=== PATIENT | female | born 1945 | race Caucasian/White ===

== ENCOUNTER 2023-04-16 05:25 | Outpatient (CLI) | payer MEDICARE, SELFPAY ==
[2023-04-16 14:05] LABS: HCT 40.4 % (36.0-46.0); HGB 13.3 g/dL (11.2-15.7); MCH 29.4 pg (27.0-33.0); MCHC 32.9 % (32.0-36.0); MCV 89 fL (80-95); MPV 9.9 fL (8.0-11.0); Platelet Count 305 10^3/uL (130-400); RBC 4.53 10^6/uL (3.93-5.22); RDW 13.9 % (11.7-14.6); RDW-SD 45.7 fL; WBC 6.97 10^3/uL (4.4-10.8)
[2023-04-16 14:38] LABS: ALT 18 U/L (14-59); AST 20 U/L (15-37); Alkaline Phosphatase 118 U/L (46-116); Anion Gap 10.2 mmol/L (3-11); BUN 15 mg/dL (7-18); Bilirubin, Total 0.4 mg/dL (0.2-1.0); CO2 27.8 mmol/L (21.0-32.0); CREATININE 1.1 mg/dL (0.55-1.02); Calcium 10.3 mg/dL (8.5-10.1); Calculated LDL 191 mg/dL (<100); Chloride 102 mmol/L (98-107); Cholesterol 301 mg/dL (<200); Glucose 96 mg/dL (74-106); HDL Cholesterol 79 mg/dL (40-60); Sodium 140 mmol/L (136-145); Triglyceride 155 mg/dL (<150)
[2023-04-16 14:49] LABS: LDH 226 U/L (81-234)
== END 2023-04-16 05:26 | disposition home or self-care (01) ==
LOC: LBO 05:26
PROVIDERS: PCP Nurse Practitioner Family; Visit Provider Nurse Practitioner Family
DX: M81.0 Age-related osteoporosis without current pathological fracture; K21.9 Gastro-esophageal reflux disease without esophagitis; E78.00 Pure hypercholesterolemia, unspecified; Z78.0 Asymptomatic menopausal state
CPT/HCPCS: 36415; 80053; 80061; 85027; 83615

== ENCOUNTER 2024-04-12 02:39 | Outpatient (CLI) | payer MEDICARE, SELFPAY ==
[2024-04-12 12:43] LABS: HCT 39.7 % (36.0-46.0); MCH 29.6 pg (27.0-33.0); MCHC 32.7 % (32.0-36.0); MCV 90 fL (80-95); MPV 10.4 fL (8.0-11.0); Platelet Count 326 10^3/uL (130-400); RBC 4.39 10^6/uL (3.93-5.22); RDW 13.9 % (11.7-14.6); RDW-SD 46.5 fL; WBC 6.47 10^3/uL (4.4-10.8)
[2024-04-12 13:35] LABS: ALT 19 U/L (14-59); AST 23 U/L (15-37); Alkaline Phosphatase 121 U/L (46-116); Anion Gap 8.2 mmol/L (3-11); BUN 15 mg/dL (7-18); Bilirubin, Total 0.67 mg/dL (0.2-1.0); CO2 27.8 mmol/L (21.0-32.0); CREATININE 1.1 mg/dL (0.55-1.02); Calcium 9.9 mg/dL (8.5-10.1); Calculated LDL 101 mg/dL (<100); Chloride 105 mmol/L (98-107); Cholesterol 193 mg/dL (<200); Estimated GFR 52.08 (mL/min/1.73m2); Glucose 103 mg/dL (74-106); HDL Cholesterol 76 mg/dL (40-60); Potassium 4.1 mmol/L (3.5-5.1); Sodium 141 mmol/L (136-145); Total Protein 7.9 g/dL (6.4-8.2); Triglyceride 83 mg/dL (<150)
[2024-04-12 17:15] LABS: Hemoglobin A1C 5.9 % (<5.7)
== END 2024-04-12 02:40 | disposition home or self-care (01) ==
PROVIDERS: PCP Nurse Practitioner Family; Visit Provider Nurse Practitioner Family
DX: E55.9 Vitamin D deficiency, unspecified; E78.5 Hyperlipidemia, unspecified; M81.0 Age-related osteoporosis without current pathological fracture; K21.9 Gastro-esophageal reflux disease without esophagitis; Z78.0 Asymptomatic menopausal state; D64.9 Anemia, unspecified
CPT/HCPCS: 36415; 80053; 80061; 82306; 85027; 83036